=== PATIENT | male | born 1955 | race Caucasian/White ===

== ENCOUNTER 2023-03-01 14:05 | Day surgery (SDC) | payer SELFPAY ==
[2023-03-01] MEDS ORDERED: PHENYLephrine 2.5% Ophth Soln 15 ml Bottle ONE (16:41)
[2023-03-01] MEDS ORDERED: Cyclopentolate 0.5% Opth Drops 15 ML BOT ONE (16:42)
[2023-03-01] MEDS ORDERED: fentaNYL 50 mcg/mL 1 mL Vial ONE (17:58)
[2023-03-01] MEDS ORDERED: Midazolam HCl 2 mg/2 ml Vial ONE (17:58)
[2023-03-01] MEDS ORDERED: CEFAZOLIN 1 GM VIAL ONE (18:50)
[2023-03-01] MEDS ORDERED: Maxitrol 0.1% Opth Oint 3.5 GM TUBE ONE (18:50)
[2023-03-01] MEDS ORDERED: Lidocaine 1% PF 5 ML VIAL ONE (18:50)
[2023-03-01] MEDS ORDERED: Bupivacaine 0.75% 10 ML VIAL ONE (18:50)
[2023-03-01] MEDS ORDERED: Triamcinolone 40 MG/ML VIAL ONE (18:50)
[2023-03-01] MEDS ORDERED: Lidocaine 4% PF 5 ML AMP ONE (18:50)
[2023-03-01] MEDS ORDERED: PROPOFOL 200 MG/20 ML VIAL ONE (18:50)
[2023-03-02] MEDS ORDERED: EPINEPHrine 0.3 MG in Ophthalmic Irrigation Solution 500 ML IRR SCH (06:00)
== END 2023-03-01 20:35 | disposition home or self-care (01) ==
LOC: SDC 14:05
PROVIDERS: ATTEND Optometrist
PROC: 08T53ZZ Resection of Left Vitreous, Percutaneous Approach (ICD-10-PCS; principal; 2023-03-01)
DX: H33.002 Unspecified retinal detachment with retinal break, left eye (principal)
CPT/HCPCS: 67025; J0690; J2250; J2704; J3010; J3301; J3490

== ENCOUNTER 2023-03-15 08:19 | Day surgery (SDC) | payer BC ==
[~2023-03-15 08:19] MED LIST: Fluorouracil 100 MG, Enoxaparin 25 MG, EPINEPHrine 0.3 MG in Ophthalmic Irrigation Solu... IRR SCH
[2023-03-15] MEDS ORDERED: PHENYLephrine 2.5% Ophth Soln 15 ml Bottle ONE (09:06)
[2023-03-15] MEDS ORDERED: Cyclopentolate 2% Opth Drop 15 ML BOT ONE (09:07)
[2023-03-15] MEDS ORDERED: Midazolam HCl 2 mg/2 ml Vial ONE (11:07)
[2023-03-15] MEDS ORDERED: fentaNYL 50 mcg/mL 1 mL Vial ONE (11:07)
[2023-03-15] MEDS ORDERED: Lidocaine 4% PF 5 ML AMP ONE (11:28)
[2023-03-15] MEDS ORDERED: Bupivacaine 0.75% 10 ML VIAL ONE (11:28)
[2023-03-15] MEDS ORDERED: Maxitrol 0.1% Opth Oint 3.5 GM TUBE ONE (11:28)
[2023-03-15] MEDS ORDERED: Lidocaine 1% PF 5 ML VIAL ONE (11:28)
[2023-03-15] MEDS ORDERED: CEFAZOLIN 1 GM VIAL ONE (11:28)
[2023-03-15] MEDS ORDERED: PROPOFOL 200 MG/20 ML VIAL ONE (11:28)
[2023-03-15] MEDS ORDERED: Triamcinolone 40 MG/ML VIAL ONE (11:28)
== END 2023-03-15 13:06 | disposition home or self-care (01) ==
LOC: SDC 08:19
PROVIDERS: ATTEND Ophthalmology Retina Specialist
PROC: 08T53ZZ Resection of Left Vitreous, Percutaneous Approach (ICD-10-PCS; principal; 2023-03-15)
DX: H33.42 Traction detachment of retina, left eye (principal)
CPT/HCPCS: C1814; J0171; J0690; J1650; J2250; J2704; J3010; J3301; J3490; J9190